=== PATIENT | female | born 2000 | race Hispanic/Latino ===

== ENCOUNTER 2020-07-14 20:25 | Emergency (ER) | payer OTHER ==
[2020-07-14 21:25] LABS: #Basophils 0.1 thou/uL (0.0-0.2); #Lymphocytes 2.7 thou/uL (1.20-3.40); #Monocytes 0.6 thou/uL (0.11-0.59); #Neutrophils 5.8 thou/uL (1.40-6.50); %Basophils 0.7 % (0.0-1.0); %Eosinophils 0.5 % (0.0-10.0); %Lymphocytes 29.5 % (28.0-48.0); %Monocytes 6.7 % (0.0-4.0); %Neutrophils 62.7 % (31.0-61.0); Hemoglobin 12.5 g/dL (12.0-16.0); Mean Corpuscular HGB CONC 35.2 g/dL (32.0-36.0); Mean Corpuscular Hemoglobin 31.9 pg (25.0-35.0); Mean Corpuscular Volume 90.6 fL (78.0-98.0); Mean Platelet Volume 7.9 fL (7.4-10.4); Platelet Count 231 thou/uL (130-400); RBC Distribution Width 11.8 % (11.5-14.5); Red Blood Cell (RBC) Count 3.91 mill/uL (4.00-5.20); White Blood Cell (WBC) Count 9.2 thou/uL (4.8-10.8)
[2020-07-14 21:54] LABS: ALT (SGPT) 17 U/L (8-55); AST (SGOT) 18 U/L (5-34); Albumin 3.9 g/dL (3.5-5.0); Alkaline Phosphatase 51 U/L (40-100); Anion Gap 12 mmol/L (10-20); BUN (Urea Nitrogen) 5 mg/dL (7.0-18.7); Bilirubin, Total 0.2 mg/dL (0.2-1.2); Calc. Creatinine Clearance 0 mL/min (70-130); Calcium 9.2 mg/dL (7.8-10.44); Carbon Dioxide 26 mmol/L (22-29); Chloride 103 mmol/L (98-107); Estimated GFR-MDRD Greater than 90; Globulin 3.3 g/dL (2.4-3.5); Glucose 100 mg/dL (70-105); Lipase 42 U/L (8-78); Potassium 3.2 mmol/L (3.5-5.1); Protein, Total 7.2 g/dL (6.0-8.3); Sodium 138 mmol/L (136-145)
--- NOTE | 2020-07-14 22:00 | ULT ---
ULTRASOUND OBSTETRICAL COMPLETE: DATE: 07/14/2020 HISTORY: 20-year-old female with right-sided abdominal pain, nausea and vomiting. FINDINGS: Maternal adnexa: Not visualized number: medeiros lie: Variable, ended the exam in breech position. Maternal cervix: 3 cm. Closed. Placenta: Posterior. No placenta previa or abruption. Amniotic fluid volume: Subjectively within normal limits. heart rate: 157 bpm The following anatomy is visualized, with no evidence of anomalies: Four-chamber heart, stomach, and cord insertion. It is too early in gestation to visualize the rest of the anatomy in detail. biometry: Biparietal diameter (BPD): 3.8 cm 17 w 5 d Head circumference (HC): 14.9 cm 18 w 0 d Abdominal circumference (AC): 13.8 cm 19 w 1 d Femur length (FL): 2.9 cm 19 w 0 d Average ultrasound age (AUA): 18 w 3 d Estimated date of delivery (BEBE): 12/12/2020 Estimated weight (EFW): 265 g +/- 39 g IMPRESSION: 1) Live 2nd trimester intrauterine gestation. 2) Estimated gestational age of 18 weeks, 3 days 3) variable lie. 4) maternal adnexa not visualized.
[2020-07-14] MEDS ORDERED: Potassium Chloride 20 MEQ TAB ONE (22:23)
[2020-07-14] MEDS ORDERED: Ondansetron ODT 4 MG TAB ONE (22:23)
[2020-07-14 23:09] LABS: Bilirubin Negative (Negative); Blood, Urine Negative (Negative); Clarity Turbid (Clear); Glucose, Urine (Dipstick) Normal (Negative); Ketone, Urine Negative (Negative); Leukocyte Negative Leu/uL (Negative); Nitrite Negative (Negative); Protein, Urine (Dipstick) Negative (Neg-Trace); Specific Gravity, Urine 1.008 (1.002-1.036); Urobilinogen Normal mg/dL (Less than 2)
== END 2020-07-14 23:36 | disposition home or self-care (01) ==
LOC: ERS 20:25
DX: O99.612 Diseases of the digestive system complicating pregnancy, second trimester (principal); K11.7 Disturbances of salivary secretion; O99.282 Endocrine, nutritional and metabolic diseases complicating pregnancy, second trimester; E87.6 Hypokalemia; Z3A.18 18 weeks gestation of pregnancy
CPT/HCPCS: 36415; 76856; 80053; 81003; 83690; 85025; 86900; 86901; 93976; Q0162

== ENCOUNTER 2020-07-22 14:34 | Outpatient (CLI) | payer OTHER ==
--- NOTE | 2020-07-22 15:28 | ULT ---
EXAM: Complete obstetrical ultrasound PROVIDED CLINICAL HISTORY: anatomic survey COMPARISON: None. FINDINGS: Number of gestations: Single. Presentation: Transverse with head to maternal right. Placental location: Posterior Previa: No evidence for previa. Cervical length: 8 cm IRENA: Normal appearing, not quantified heart rate: 156 bpm. Biparietal diameter: 4.5cm, 19 weeks 4 days, . Head circumference: 16.2 cm, 19 weeks 0 days, Abdominal circumference: 13 cm, 18 weeks 4 days, Femoral length: 2.7cm, 18 weeks 1 day, Estimated weight: 239 g +/- 35g SURVEY: head: Normal appearing. Cerebellum: Normal appearing. Cisterna magna: Normal appearing. Lateral ventricles: Normal appearing. 4 chamber heart: Normal appearing.. Stomach: Normal appearing. Kidneys: Normal appearing. Cord insertion: Normal appearing. Bladder: Normal appearing. Spine: Normal appearing. Lips and nose: Normal appearing. Extremities: Normal appearing. Three-vessel CORD: Normal appearing. The average gestational age by ultrasound is 18 weeks 6 days. IMPRESSION: 1. Single live intrauterine gestation with size and dates as above.
== END 2020-07-22 14:35 | disposition home or self-care (01) ==
LOC: BICULT 14:34
PROVIDERS: ATTEND Family Medicine
DX: Z34.02 Encounter for supervision of normal first pregnancy, second trimester (principal); Z3A.18 18 weeks gestation of pregnancy
CPT/HCPCS: 76805

== ENCOUNTER 2025-06-07 21:27 | Emergency (ER) | payer OTHER ==
[2025-06-07 22:20] LABS: Hematocrit 40.2 % (36.0-47.0); Hemoglobin 12.4 g/dL (12.0-16.0); Mean Corpuscular Hemoglobin 24.2 pg (27.0-31.0); Mean Corpuscular Volume 78.5 fL (78.0-98.0); Platelet Count 259 10x3/uL (130-400); Red Blood Cell (RBC) Count 5.12 mill/uL (4.20-5.40); White Blood Cell (WBC) Count 5.98 10x3/uL (4.8-10.8)
[2025-06-07 22:38] LABS: ALT (SGPT) 24 U/L (Less than 34); AST (SGOT) 54 U/L (11-34); Albumin 5.0 g/dL (3.1-4.5); Alkaline Phosphatase 136 U/L (40-110); Anion Gap 18 mmol/L (10-20); BUN (Urea Nitrogen) 17 mg/dL (7.0-18.7); Bilirubin, Total 0.4 mg/dL (0.3-1.2); Calc. Creatinine Clearance 0 mL/min (70-130); Calcium 9.9 mg/dL (7.8-10.44); Carbon Dioxide 22 mmol/L (22-29); Chloride 104 mmol/L (98-107); Globulin 4.3 g/dL (2.4-3.5); Glucose 89 mg/dL (70-105); Lipase 51 U/L (8-78); Potassium 3.4 mmol/L (3.5-5.1); Sodium 141 mmol/L (136-145)
[2025-06-07 22:39] LABS: Microcytosis SLIGHT = 6-15 cells HPF (0-5); Platelet Adequacy Comment Platelets Normal; Polychromasia SLIGHT = 2-3 cells HPF (0-2)
[2025-06-07] MEDS ORDERED: Famotidine 20 MG TAB ONE (22:48)
[2025-06-07 23:10] LABS: Pregnancy Test - Urine (BHCG) Negative (Negative); Pregu Control Background? CLEAR/WHITE (CLR/WHITE); Pregu Control Bar Appear? YES (CONTROL BAR)
[2025-06-07 23:11] LABS: Bacteria/HPF None Seen HPF (None Seen); CAUTI Indications for Culture Pelvic or flank pain; Glucose, Urine (Dipstick) Normal (Negative); Leukocyte 75 Leu/uL (Negative); Protein, Urine (Dipstick) Negative (Neg-Trace); RBC/HPF 0-3 HPF (0-3); Specific Gravity, Urine 1.022 (1.002-1.036)
[2025-06-07 23:13] LABS: Urine Culture Reflex Yes Yes
[2025-06-08] MEDS ORDERED: Ketorolac Tromethamine 30 MG (1 mL) VIAL ONE (00:26)
== END 2025-06-08 00:31 | disposition home or self-care (01) ==
LOC: ERS 21:27
DX: K80.20 Calculus of gallbladder without cholecystitis without obstruction (principal)
CPT/HCPCS: 76705; 80053; 81001; 81025; 83690; 84484; 85025; 85379; 87086; 96374; 96375; J1885; J2060

== ENCOUNTER 2025-06-12 15:53 | Emergency (ER) | payer OTHER ==
[2025-06-12 17:16] LABS: #Basophils Less than 0.03 10x3/uL (0.0-0.2); #Eosinophils 0.07 10x3/uL (0.0-0.7); #Monocytes 0.36 10x3/uL (0.11-0.59); #Neutrophils 2.44 10x3/uL (1.40-6.50); %Basophils 0.2 % (0.0-1.0); %Eosinophils 1.4 % (0.0-10.0); %Lymphocytes 43.1 % (21.0-51.0); %Monocytes 7.1 % (0.0-10.0); %Neutrophils 48.0 % (42.0-75.0); Hematocrit 37.7 % (36.0-47.0); Hemoglobin 11.1 g/dL (12.0-16.0); Mean Corpuscular Hemoglobin 23.7 pg (27.0-31.0); Mean Corpuscular Volume 80.6 fL (78.0-98.0); Platelet Count 206 10x3/uL (130-400); Red Blood Cell (RBC) Count 4.68 mill/uL (4.20-5.40); White Blood Cell (WBC) Count 5.08 10x3/uL (4.8-10.8)
[2025-06-12] MEDS ORDERED: Ketorolac Tromethamine 30 MG (1 mL) VIAL ONE (17:24)
[2025-06-12 17:45] LABS: ALT (SGPT) 31 U/L (Less than 34); AST (SGOT) 37 U/L (11-34); Albumin 4.3 g/dL (3.1-4.5); Alkaline Phosphatase 117 U/L (40-110); Anion Gap 13 mmol/L (10-20); BUN (Urea Nitrogen) 16 mg/dL (7.0-18.7); Bilirubin, Total 0.2 mg/dL (0.3-1.2); Calc. Creatinine Clearance 0 mL/min (70-130); Calcium 9.2 mg/dL (7.8-10.44); Carbon Dioxide 26 mmol/L (22-29); Chloride 104 mmol/L (98-107); Globulin 3.3 g/dL (2.4-3.5); Glucose 101 mg/dL (70-105); Lipase 194 U/L (8-78); Potassium 3.8 mmol/L (3.5-5.1); Sodium 139 mmol/L (136-145)
[2025-06-12] MEDS ORDERED: Ondansetron PF 4 MG/2 ML Vial ONE (17:54)
== END 2025-06-12 19:45 | disposition home or self-care (01) ==
LOC: ERS 15:53
DX: K80.20 Calculus of gallbladder without cholecystitis without obstruction (principal)
CPT/HCPCS: 71045; 76705; 80053; 83605; 83690; 85025; 93005; 96374; 96375; J1885